=== PATIENT | male | born 1955 | race Two or more races ===

== ENCOUNTER 2022-09-16 21:39 | Emergency (ER) | payer MEDICARE, OTHER ==
[~2022-09-16] VITALS: Ht 165.1 cm; Wt 74.4 kg
[2022-09-16 21:39] VITALS: BP 176/95
--- NOTE | 2022-09-16 22:31 | NUR ---
COVID AND INFLUENZA SWAB COLLECTED AND SENT TO LAB
--- NOTE | 2022-09-17 00:32 | NUR ---
Patient discharged to home in stable condition. Written and verbal after care instructions given. Patient verbalizes understanding of instruction. Pt ambulatory with a steady gait
== END 2022-09-17 00:31 | disposition home or self-care (01) ==
LOC: ER 21:43
DX: J06.9 Acute upper respiratory infection, unspecified (principal); R05.9 Cough, unspecified; I10 Essential (primary) hypertension; F17.210 Nicotine dependence, cigarettes, uncomplicated; Z20.822 Contact with and (suspected) exposure to COVID-19
CPT/HCPCS: 71045-TC; C9803